=== PATIENT | male | born 1955 | race Caucasian/White ===

== ENCOUNTER 2018-08-31 09:22 | Emergency (ER) | payer MEDICARE ==
[~2018-08-31] VITALS: Ht 177.8 cm; Wt 101.3 kg
[2018-08-31 09:34] VITALS: BP 141/91
--- NOTE | 2018-08-31 10:35 | NUR ---
PT BACK FROM XRAY
[2018-08-31] MEDS ORDERED: HYDR-4353 PO (11:46)
== END 2018-08-31 12:05 | disposition home or self-care (01) ==
LOC: ER 09:22
DX: R07.81 Pleurodynia (principal); Z88.8 Allergy status to other drugs, medicaments and biological substances
CPT/HCPCS: 71045; 71100; 99283